=== PATIENT | male | born 1955 | race Caucasian/White ===

== ENCOUNTER 2019-03-16 08:05 | Day surgery (SDC) | payer OTHER ==
[2019-03-15 11:31] LABS: HEMATOCRIT 41.3 % (42.0-54.0); HEMOGLOBIN 13.8 g/dL (13.5-17.5); MCH 31.2 pg (26.0-34.0); MCHC 33.4 g/dL (31.0-37.0); MCV 93.4 fL (80.0-100.0); MEAN PLATELET VOLUME 9.9 fL (7.4-10.4); RBC 4.42 10x6/uL (4.20-6.10); RDW 12.7 % (11.5-14.5); WBC 6.5 10x3/uL (4.8-10.8)
[~2019-03-16] VITALS: Ht 175.3 cm; Wt 116.1 kg
[~2019-03-16 08:05] MED LIST: ASPIRIN EC81 M1 PO; GARLIC PO; GINGER500 MG PO; GINSENG PO; MIRALAX17 GM PO; MUCINEX DM ER1 EAC1 PO; NORVASC10 MG PO; OMEPRAZOLE20 M1 PO; PROZAC20 MG PO; ROPINIROLE HCL4 M1 PO; TUCKS MEDICATE1 EACH TOPICAL; ULTRAM50 MG PO; VITAMIN B-12500 MCG PO; VITAMIN C500 MG PO; ZOCOR80 MG PO; ZYRTEC10 MG PO
[2019-03-16] MEDS ORDERED: FISH OIL 1,0001 CA1 PO (08:22)
[2019-03-16 08:23] VITALS: BP 128/67; Ht 175.3 cm; Wt 116.1 kg
[2019-03-16] MEDS ORDERED: MIRALAX17 GM PO (09:57)
[2019-03-16] MEDS ORDERED: HYDROCODON-ACE1 EAC7 PO (09:57)
--- NOTE | 2019-03-16 11:26 | NUR ---
1058-REC'D FROM RR. AWAKE AND ALERT WITHOUT PAIN. VSS. IV PATENT TO LEFT ARM AT KVO. AT BEDSIDE, CL IN EASY REACH
--- NOTE | 2019-03-16 13:17 | NUR ---
1215-DISCHARGE CRITERIA MET. REMOVED IV WITH CATH INTACT,DISPOSED INTO SHARPS. COVERED SITE WITH BANDAID. REVIEWED POST OPERATIVE INSTRUCTIONS WITH PT,SPOUSE AT BEDSIDE.VERBALIZED UNDERSTANDING. ESCORTED OUT VIA W/C WITH SPOUSE AWAITING TO DRIVE HOME.
== END 2019-03-16 12:15 | disposition home or self-care (01) ==
LOC: D.OPS → D.PAN 10:30 → D.OPS 12:15
PROVIDERS: Anesthesiology; ATTEND Surgery
DX: K64.8 Other hemorrhoids (principal)